=== PATIENT | male | born 1985 | race Caucasian/White ===

== ENCOUNTER 2020-06-11 09:29 | Emergency (ER) | payer BC | END 2020-06-11 09:38 | disposition home or self-care (01) | LOC: JVIRT 09:29 | DX: Z11.59 Encounter for screening for other viral diseases (principal) | CPT/HCPCS: C9803; Q3014-GT; U0003 ==

== ENCOUNTER 2020-08-07 17:46 | Emergency (ER) | payer BC | END 2020-08-07 21:55 | disposition home or self-care (01) | LOC: JVIRT 17:46 | DX: Z11.52 Encounter for screening for COVID-19 (principal) | CPT/HCPCS: C9803; G2251-GT; U0003 ==